=== PATIENT | male | born 1990 | race Two or more races ===

== ENCOUNTER 2018-02-18 18:35 | Emergency (ER) | payer OTHER ==
[~2018-02-18] VITALS: Ht 177.8 cm; Wt 68.0 kg
--- NOTE | 2018-02-18 18:48 | NUR ---
AAOX3, BIBRA C/O SEIZURE, ORAL TRAUMA, HX OF SEIZURE. RR IS EVEN AND UNLABORED WITH NAD NOTED. SKIN IS WARM AND DRY. PLACED ON THE MONITOR AND SEIZURE PRECAUTION. AWAITING MD FOR EVAL.
--- NOTE | 2018-02-18 18:50 | NUR ---
IVHL LAC 18G NOTED [facility] SECRETARY.
[2018-02-18 19:09] LABS: BASOPHILS # (AUTO) 0.1 /CMM (0.0-0.2); BASOPHILS % (AUTO) 0.7 % (0.0-2.0); EOSINOPHILS % (AUTO) 1.1 % (0.0-6.0); HEMATOCRIT 45 % (39-51); HEMOGLOBIN 15.1 g/dL (13.5-17.5); LYMPHOCYTES # (AUTO) 1.4 /CMM (0.8-4.8); LYMPHOCYTES % (AUTO) 17.7 % (20.0-44.0); MEAN CORPUSCULAR HEMOGLOBIN 31 PG (26.0-33.0); MEAN CORPUSCULAR HGB CONC 34 g/dl (31.0-36.0); MEAN CORPUSCULAR VOLUME 90 fL (80-96); MONOCYTES # (AUTO) 0.5 /CMM (0.1-1.30); MONOCYTES % (AUTO) 6.3 % (2.0-12.0); NEUTROPHILS % (AUTO) 74.2 % (43.0-81.0); PLATELET COUNT (AUTO) 227 /CMM (150-450); RDW COEFFICIENT OF VARIATION 12.7 (11.5-15.0); RED BLOOD CELL COUNT(AUTO) 4.96 MIL/uL (4.5-6.0); WHITE BLOOD COUNT (AUTO) 8.1 K/uL (4.3-11.0)
--- NOTE | 2018-02-18 19:15 | NUR ---
Report given to Ed, oil winterizer nurse for [facility].
[2018-02-18 19:17] LABS: CARBON DIOXIDE 25 mmol/L (21-32); CHLORIDE 99 mmol/L (98-107); CREATININE 1.1 mg/dL (0.6-1.3); GLUCOSE 100 mg/dL (74-106); POTASSIUM 4.3 mmol/L (3.5-5.1); SODIUM SERUM 136 mmol/L (136-145); UREA NITROGEN, BLOOD 10 mg/dL (7-18)
[2018-02-18 20:03] LABS: PHENYTOIN (DILANTIN) < 0.5 ug/ml (10.0-20.0)
[2018-02-18] MEDS ORDERED: phenytoin SODIUM IV 250 MG/5 ML VIAL IV ONE (20:27)
[2018-02-18] MEDS ORDERED: phenytoin SODIUM IV 1,000 MG in IV NS 0.9% 100 ML IV ONE (20:30)
[2018-02-18] MEDS ORDERED: IV NS 0.9% 500 ML BAG IV ONE (20:30)
--- NOTE | 2018-02-18 20:30 | NUR ---
IVPB DILANTIN 1G LAC 20G END TIME 0010
--- NOTE | 2018-02-18 20:30 | NUR ---
IVPB 500 ML NS LAC 20G END TIME 2100
[2018-02-18] MEDS ORDERED: PHENYTOIN EXTENDED RELEASE 100 MG CAPSULE PO ONE ×2 (21:05→21:30)
--- NOTE | 2018-02-18 21:05 | NUR ---
PT REFUSE TO FINISH DILANTIN INFUSION. ER MD ,DILAN AWARE, ALL RISKS EXPLAINED BY ER MD TO PT. PT VERBALIZE UNDERSTANDING. PT AAOX4 NO ACUTE DISTRESS NOTED, RESP EVEN AND UNLABORED.
--- NOTE | 2018-02-18 21:10 | NUR ---
IV removed. Catheter intact and site benign. Pressure and 4x4 applied to site. No bleeding noted. Patient does not wish to proceed with medical care recommended by ([facility]). Patient given information related to possible complications, up to and including , which could occur as a result of leaving the hospital at this time. Patient verbalizes understanding of risks involved due to leaving against medical advice. Patient has signed AMA form.
[2018-02-18 21:11] VITALS: BP 121/72
--- NOTE | 2018-02-18 21:11 | NUR ---
PT MOM AT BEDSIDE TO TAKE PT HOME.
== END 2018-02-18 21:12 | disposition left against medical advice (07) ==
LOC: ER 18:40
DX: G40.909 Epilepsy, unspecified, not intractable, without status epilepticus (principal); Z91.14 Patient's other noncompliance with medication regimen; F11.10 Opioid abuse, uncomplicated; Z60.2 Problems related to living alone
CPT/HCPCS: 36415; 80048; 80185; 85025; 96365; 99284; A4606; G0480; J1165 ×2; J7030 ×2; J7040; Z7610